=== PATIENT | female | born 1960 | race Caucasian/White ===

== ENCOUNTER → 2016-04-20 | Outpatient (CLI) | payer MEDICARE ==
[2016-01-03 17:15] VITALS: BP 157/98
[~2016-04-20] MED LIST: ALPR1TAB2 PO; ASPI325T4 PO; ATOR20TA PO; ERGO500012 PO; FLUV50TA2 PO; GABA-587 PO; ILOP8TAB2 PO; LEVO50TA5 PO; OLAN10TA3 PO; POTASSIUM 99 MG; PRIM50TA PO; PROP10TA PO; SERT100T PO
--- NOTE | 2016-04-20 14:11 | RAD ---
EXAM: CT thoracic spine without contrast. HISTORY: T12 fracture. TECHNIQUE: CT of the thoracic spine was performed without intravenous contrast. COMPARISON: 02/09/2016. FINDINGS: There is a severe compression fracture at T12 with near vertebra plana. There is retropulsion of the posterior aspect of the vertebral body by 5 mm. This is not clearly changed since the prior study. Central canal stenosis is moderate at this level with minimal anteroposterior central canal diameter 6.5 mm centrally. There is mild focal kyphosis. There is a moderate to large Schmorl's node at the inferior endplate of L1 with mild depression of the inferior endplate. This is also unchanged. There is no retropulsion. There is a sclerotic focus along the posterior inferior endplate of T8, corresponding with the lesion seen on prior MRI. There is no associated compression deformity or clear destructive change. The small lesion seen at T8 on the prior study does not have a correlate on CT. Mild wedging of T8 appears chronic. No acute fractures are seen. There is a mild upper thoracic dextrocurvature. Osteopenia is at least moderate. Changes of instrumented anterior cervical discectomy and fusion are noted from C5 through C7. Intervertebral disc heights are maintained. There is no clear central canal stenosis or foraminal stenosis at other levels. There are postsurgical changes at the hiatus. Calcified mediastinal lymph nodes are likely secondary to old granulomatous disease. Scattered parenchymal calcified granulomas are also noted. IMPRESSION: 1. Severe compression fracture at T12, with near vertebra plana, unchanged. 5 mm retropulsion results in moderate central canal stenosis with minimal anteroposterior central canal diameter is 6.5 mm. Mild focal kyphosis. 2. The lesion of concern on prior MRI at T10 is sclerotic by CT. The T8 lesion is not detectable. These remain indeterminate but have not clearly progressed given differences in technique. Another follow-up bilateral MRI could be considered in 6 months. 3. Stable moderate inferior endplate Schmorl's node at L1 with mild inferior plate compression. 4. Mild upper thoracic dextrocurvature. One or more of the following individualized dose reduction techniques were utilized for this examination: 1. Automated exposure control. 2. Adjustment of the mA and/or kV according to patient size. 3. Use of iterative reconstruction technique.
== END | disposition home or self-care (01) ==
LOC: CT 12:27
PROVIDERS: ATTEND Neurological Surgery
DX: S22.089A Unspecified fracture of T11-T12 vertebra, initial encounter for closed fracture (principal); M48.04 Spinal stenosis, thoracic region; M40.294 Other kyphosis, thoracic region; M51.46 Schmorl's nodes, lumbar region
CPT/HCPCS: 72128

== ENCOUNTER → 2018-11-06 | Outpatient (CLI) | payer MEDICARE ==
[2016-05-04 11:37] VITALS: BP 112/87
[~2018-11-06] MED LIST changes: +AMOX500C PO; -ASPI325T4 PO; +ASPI325T8 PO; +CHOL20002 PO; -ERGO500012 PO; +ERGO500027 PO; -GABA-587 PO; +GABA-689 PO; +GABA300C18 PO; +HYDR-2765 PO; +LISI-334 PO; +POTA99TA10 PO
--- NOTE | 2018-11-07 10:01 | KCIC ---
MRI Thoracic Spine without contrast History: Previous compression fracture, new severe low back pain Technique: Multiplanar, multi sequential noncontrast MR imaging was performed of the thoracic spine. Comparison: February 09, 2016 thoracic spine MRI exam Findings: There is some motion degradation. There has been interval vertebroplasty at T8. There is now posterolateral fusion hardware T9, T10, T11, L1, L2, L3 with bilateral pedicle screws attached to vertical rods, integrity of hardware not accurately evaluated on this exam. There is again T12 vertebral body fracture, osseous retropulsion as seen previously. Degree of inferior L1 endplate concavity is similar. There is small focus of edema of the inferior T10 endplate posteriorly unchanged. There is no new convincing marrow edema, some artifact created by hardware. Visualized thoracic cord caliber is within normal limits without focal expansile signal abnormality, limited evaluation at levels of hardware. There has been posterior decompression centered about T12. No significant thoracic spinal stenosis is identified. Inferior thoracic neural foramina are poorly visualized due to artifact from hardware, otherwise no significant neural foramina compromise identified. There is anterior cervical fusion hardware C5-C7 as seen on the localizer. There is mild thoracic dextroscoliosis. As seen on localizer, there is grade 1 anterior spondylolisthesis L5-S1. There is L5-S1 degenerative disc disease. IMPRESSION: 1. There has been vertebroplasty at T8. There is again T12 vertebral body fracture with osseous retropulsion, posterior decompression about this level and posterolateral hardware T9-L3. No convincing significant marrow edema is identified, limited evaluation about the levels of hardware due to artifact. Electronically signed by: Enrique Jackson MD (11/07/2018 9:59 AM) [email or web address]
== END | disposition home or self-care (01) ==
LOC: KCIC MRI 10:37
PROVIDERS: ATTEND Family Medicine
DX: S22.088G Other fracture of T11-T12 vertebra, subsequent encounter for fracture with delayed healing (principal); M51.37 Other intervertebral disc degeneration, lumbosacral region; M43.17 Spondylolisthesis, lumbosacral region; M43.22 Fusion of spine, cervical region; X58.XXXD Exposure to other specified factors, subsequent encounter
CPT/HCPCS: 72146

== ENCOUNTER → 2018-12-17 | Outpatient (CLI) | payer MEDICARE ==
[2016-05-04 11:37] VITALS: BP 112/87
[~2018-12-17] MED LIST changes: +IOHEXOL 300 MG/ML 50 ML VIAL. IT ONE; +LIDOCAINE 1% Multi-Dose 20 ML VIAL. ID ONE
--- NOTE | 2018-12-17 17:39 | KCIC ---
Thoracic and Lumbar myelogram 12/17/2018 Clinical History: Mid and low back pain. Left leg pain. Technique: After the risks and benefits of the procedure were explained to the patient, written informed consent was obtained. The patient was placed prone on the fluoroscopy table and the lower back was prepped and draped in sterile fashion. 1% lidocaine was used as a local anesthetic. Under fluoroscopic guidance, the thecal sac of the lumbar cistern was punctured at the L3-4 level using 25-gauge Charlene needle. After confirming clear CSF return, 12 cc of Omnipaque 300 were injected through the needle into the thecal sac of the lumbar cistern under fluoroscopic guidance. Following this the needle was removed and hemostasis achieved at the puncture site. A sterile bandage was placed on the skin puncture site. AP, bilateral oblique, lateral and standing neutral, flexion and extension lateral digital radiographs of the lumbar spine were obtained. Following this the contrast column was advanced under fluoroscopy into the thoracic spine and multiple AP and lateral digital spot radiographs of the thoracic spine were obtained. Following this the patient was taken to CT where a CT scan of the thoracic and lumbar spine were performed. These will be reported separately. Following the examinations the patient was sent home with an instruction sheet. The patient tolerated the procedure well and there were no immediate complications. The total fluoroscopic time for this procedure was 3 minutes 15 seconds. 15 digital spot radiographs were obtained. Findings: There is diffuse osteopenia of the visualized bony structures. Mild S-shaped curvature of the thoracolumbar spine is seen. The patient is post kyphoplasty type procedure at T8. The patient is post fusion using stabilizing rods and pedicle screws at T9, T10,11 extending to L1, L2 and L3. An old compression fracture of the T12 vertebral body is noted. Bilateral spondylolysis is seen at L5. Grade 2 spondylolisthesis of L5 in relation S1 is noted. No extradural defect is seen upon the contrast column within the thoracic spine. Mild anterior and posterior extradural defects are seen upon the contrast column at L5-S1. There is no evidence of complete block of contrast at any level involving the thoracic and lumbar vertebrae. The alignment of the lumbar vertebrae is maintained on the flexion extension radiographs. Atherosclerotic calcification of the abdominal aorta is seen. Impression: 1. Postsurgical changes are seen as discussed above. 2. Bilateral spondylolysis with grade 2 spondylolisthesis at L5-S1. Electronically signed by: Marquez Madden MD (12/17/2018 5:36 PM) [email or web address]
--- NOTE | 2018-12-17 17:53 | KCIC ---
CT thoracic and lumbar myelogram 12/17/2018 CLINICAL HISTORY: Mid and low back pain. Left hip pain. History of previous surgeries. TECHNIQUE: This study was performed after the patient's thoracic and lumbar myelogram. Contiguous, 0.6 mm axial sections were obtained through the thoracic and lumbar spine. 3 mm reconstructed sagittal, axial and coronal images were obtained. One or more of the following individualized dose reduction techniques were utilized for this study: 1. Automated exposure control. 2. Adjustment of the mA and/or kV according to patient size. 3. Use of iterative reconstruction technique. FINDINGS: Comparison is made to patient's MRI of the thoracic spine dated 11/06/2018. Additional comparison is made to patient's thoracic and lumbar myelogram performed earlier today. Sagittal coronal reconstructed images demonstrate diffuse osteopenia of the visualized bony structures. Mild S-shaped curvature of the thoracolumbar spine is seen. The patient is post kyphoplasty type procedure at T8. The patient is post fusion using stabilizing rods and pedicle screws at T9, T10,11 extending to L1, L2 and L3. The patient is post laminectomy at T12. An old compression fracture of the T12 vertebral body is noted. No retropulsion of bone fragments into the central spinal canal seen. Old compression deformity of the L1 vertebral body is seen. Bilateral spondylolysis is seen at L5. Grade 2 spondylolisthesis of L5 in relation S1 is noted. Note is made of calcified hilar and mediastinal lymph nodes. Scattered atherosclerotic plaque formation seen involving the thoracic aorta along with the abdominal aorta. On the axial images throughout the thoracic disc spaces a mild generalized disc bulge is seen at T8-9. Superimposed right paracentral focal disc protrusion is seen which measures 2 mm in AP diameter. Degenerative changes are seen involving the facet joints throughout the mid and lower thoracic disc spaces. These findings do not result in significant central spinal canal or neural foraminal stenosis. The axial images throughout the lumbar disc spaces demonstrate mild generalized disc bulges along with degenerative changes involving the facet joints mild ligamentum flavum hypertrophy. These findings when combined with the anterolisthesis at L5-S1 result in severe bilateral neural foraminal stenosis. No significant central spinal canal stenosis is seen. IMPRESSION: 1. Postsurgical changes are seen as discussed above. 2. Bilateral spondylolysis with grade 2 spondylolisthesis at L5-S1. 3. Degenerative changes are seen involving the thoracic spine. These findings do not result in significant central spinal canal or neural foraminal stenosis. 4. The changes of degenerative disc disease are seen involving the lumbar spine. These findings do not result in significant central spinal canal stenosis at any level. Severe bilateral neural foraminal stenosis is seen at L5-S1. Electronically signed by: Marquez Madden MD (12/17/2018 5:50 PM) [id number]
== END | disposition home or self-care (01) ==
LOC: KCIC 08:32
PROVIDERS: ATTEND Neurological Surgery
DX: M54.5 Low back pain (principal); M47.817 Spondylosis without myelopathy or radiculopathy, lumbosacral region; M48.07 Spinal stenosis, lumbosacral region; Z98.890 Other specified postprocedural states
CPT/HCPCS: 72129; 72132; 72270; Q9967

== ENCOUNTER → 2019-01-30 | Outpatient (CLI) | payer MEDICARE ==
[2016-05-04 11:37] VITALS: BP 112/87
[~2019-01-30] MED LIST changes: +CLONAZEPAM1 MG PO; +FLUV100T2 PO; -IOHEXOL 300 MG/ML 50 ML VIAL. IT ONE; -LIDOCAINE 1% Multi-Dose 20 ML VIAL. ID ONE; +MIRT15TA90 PO; +QUET400T4 PO; +[UNRECOGNIZED DRUG - CODE] PO
--- NOTE | 2019-01-30 14:19 | EKG ---
[facility] [address] [place] [address] Test Date: 2019-01-30 Test Time: 14:13:13 Pat Name: BLAYNE ROSA Department: Room: Gender: F [employer] Trainee: JEOVANY : 1960 Requested By: HALLE ALCOCER Order Number: [id number] Reading MD: Measurements Intervals [place] Rate: 100 P: 143 MA: 134 QRS: -159 QRSD: 90 T: 136 QT: 342 QTc: 444 Interpretive Statements SUPRAVENTRICULAR RHYTHM ABNORMAL RIGHT SUPERIOR AXIS DEVIATION S1,S2,S3 PATTERN CONSIDER RIGHT VENTRICULAR HYPERTROPHY QRS(T) CONTOUR ABNORMALITY CONSIDER ANTEROSEPTAL MYOCARDIAL DAMAGE T ABNORMALITY IN HIGH LATERAL LEADS ABNORMAL ECG RI6.01 No previous ECG available for comparison
[2019-01-30 14:21] LABS: BASO % 1 % (0-3); EOS # 0.1 x10^3/uL (0.0-0.7); EOS % 1 % (0-3); HEMATOCRIT 39.2 % (36.0-47.0); HEMOGLOBIN 12.9 g/dL (12.0-15.5); LYMPH # 1.3 x10^3/uL (1.0-4.8); LYMPH % 18 % (24-48); MEAN CORPUSCULAR HEMOGLOBIN 26 pg (25-35); MEAN CORPUSCULAR HGB CONC 33 g/dL (31-37); MEAN CORPUSCULAR VOLUME 80 fL (79-100); MONO # 0.4 x10^3/uL (0.0-1.1); MONO % 6 % (0-9); NEUT # 5.3 x10^3/uL (1.8-7.7); NEUT % 74 % (31-73); PLATELET COUNT 224 x10^3/uL (140-400); RED BLOOD COUNT 4.88 x10^6/uL (3.50-5.40); WHITE BLOOD COUNT 7.2 x10^3/uL (4.0-11.0)
[2019-01-30 14:45] LABS: PROTHROMBIN TIME PATIENT 12.1 SEC (11.7-14.0)
[2019-01-30 14:46] LABS: ALBUMIN 3.9 g/dL (3.4-5.0); CALCIUM 8.9 mg/dL (8.5-10.1); CREATININE 0.8 mg/dL (0.6-1.0); GFR 73.7; POTASSIUM 3.7 mmol/L (3.5-5.1); TOTAL BILIRUBIN 0.2 mg/dL (0.2-1.0); TOTAL PROTEIN 7.9 g/dL (6.4-8.2)
--- NOTE | 2019-01-30 14:54 | RAD ---
EXAM: Chest, 2 views. HISTORY: Pain. Preoperative evaluation. COMPARISON: None. FINDINGS: 2 views of the chest are obtained. There is no infiltrate, pleural effusion or pneumothorax. The heart is normal in size. There is cervical and upper lumbar fusion instrumentation. There is a midthoracic compression fracture with vertebroplasty changes. There are few calcified granulomas. IMPRESSION: No acute pulmonary finding. Electronically signed by: Alma Delia Spencer MD (01/30/2019 2:51 PM) [place] [id number]
[2019-01-30 17:24] LABS: PLT ESTIMATE ADEQUATE (ADEQUATE)
[2019-01-30 17:25] LABS: ANISOCYTOSIS SLIGHT; OVALOCYTES OCC; TEAR DROP CELLS OCC
[2019-01-31 00:07] LABS: HEMOGLOBIN A1C 5.3 % (4.8-5.6)
== END | disposition home or self-care (01) ==
LOC: SURGPAT 13:24
PROVIDERS: ATTEND Neurological Surgery
DX: Z01.818 Encounter for other preprocedural examination (principal); M47.26 Other spondylosis with radiculopathy, lumbar region; M43.16 Spondylolisthesis, lumbar region; E78.00 Pure hypercholesterolemia, unspecified; I10 Essential (primary) hypertension; Z88.8 Allergy status to other drugs, medicaments and biological substances; Z79.899 Other long term (current) drug therapy
CPT/HCPCS: 36415; 71046; 80053; 83036; 85025; 85610; 85730; 87641; 93005

== ENCOUNTER 2019-02-10 06:43 | Inpatient (IN) | payer MEDICARE ==
[~2019-02-10] VITALS: Ht 157.5 cm; Wt 54.4 kg
[2019-02-10] VITALS (10 sets, daily range): BP systolic 90–135; BP diastolic 66–90
[~2019-02-10 06:43] MED LIST changes: +BACITRACIN 50,000 UNIT in IV NORMAL SALINE 1000ML BAG 1,000 ML IRR ONE; +BUPIVACAINE MPF 0.5% 30 ML VIAL. ONE; +GELATIN SPONGE SIZE 100. ONE; +IV RINGERS,LACTATED 1000ML 1,000 ML IV SCH; +LIDOCAINE 1% PF 2 ML VIAL. ID PRN; +LIDOCAINE 1%/EPI 1:100,000 20 ML VIAL. ONE; +ONDANSETRON PF 4 MG/2 ML VIAL. IV PRN; +PROCHLORPERAZINE 10 MG/2 ML VIAL. IV PRN; +fentaNYL PF VIAL 100 MCG/2 ML VIAL IV PRN
[2019-02-10] MEDS ORDERED: THROMBIN TOPICAL 20,000 UNIT SPRAY.SYRN KIT TP ONE (06:44)
[2019-02-10] MEDS ORDERED: SCOPOLAMINE 1.5MG PATCH. TD ONE (08:00)
[2019-02-10] MEDS ORDERED: REMIFENTANIL 2 MG VIAL. IV ONE (08:25)
[2019-02-10] MEDS ORDERED: MIDAZOLAM HCL/PF 2 MG/2 ML VIAL. ONE (08:25)
[2019-02-10] MEDS ORDERED: ROCURONIUM 50 MG/5 ML VIAL. ONE (08:26)
[2019-02-10] MEDS ORDERED: fentaNYL PF VIAL 100 MCG/2 ML VIAL ONE (08:28)
[2019-02-10] MEDS ORDERED: PHENYLEPHRINE in 0.9% NACL PF 1 MG/10 ML SYRINGE. IV ONE (09:02)
[2019-02-10] MEDS ORDERED: PHENYLEPHRINE 10 MG/ML VIAL. ONE ×2 (09:55)
--- NOTE | 2019-02-10 09:58 | RAD ---
Examination: CT LUMBAR SPINE WO CONTRAST History: Spondylolysis. Back pain. Radiculopathy. Comparison/Correlation: None Findings: Axial images of the lumbar spine were obtained without contrast. Sagittal and coronal reformatted images were provided. Severe T12 vertebral body compression fracture with greater than 75 percent vertebral body height loss again seen. Kyphoplasty findings suggested. Bilateral T12 laminectomy noted. Compression fracture of L1 is identified to have mildly progressed since 02/09/2016 MRI lumbar spine. Spinal rods are not fully included on this exam. Rods are identified extending to the L3 level and superiorly on the [id number] of this exam. Associated pedicle screws bilaterally are seen at L1, L2, and L3. Grade 2 anterolisthesis of L5 over S1 is similar upon correlation with previous MRI exam dated 02/09/2016. Bilateral L5 pars interarticularis chronic fractures again seen. Left neural foraminal narrowing in particular is evident with effacement of the left exiting nerve root. Compression on the exiting right L5 nerve root is present. Suture material is noted in the left pelvic sidewall region and associated with the sigmoid colon.. Impression: Postoperative findings. Compression deformities. Anterolisthesis of L5 in relation to S1. Nerve root effacement and compression at L5. PQRS Compliance Statement: One or more of the following individualized dose reduction techniques were utilized for this examination: 1. Automated exposure control 2. Adjustment of the mA and/or kV according to patient size 3. Use of iterative reconstruction technique Electronically signed by: Jaxson Bennett MD (02/10/2019 9:55 AM) [facility]
[2019-02-10] MEDS ORDERED: DEXAMETHASONE SOD PHOS 4 MG/ML VIAL ONE (12:33)
[2019-02-10] MEDS ORDERED: ONDANSETRON PF 4 MG/2 ML VIAL. ONE (12:33)
[2019-02-10] MEDS ORDERED: LIDOCAINE 2% PF 5 ML VIAL. ONE (12:33)
[2019-02-10] MEDS ORDERED: PROPOFOL 20 ML IV ONE (12:33)
[2019-02-10] MEDS ORDERED: ceFAZolin SODIUM 1 GM VIAL ONE (12:52)
[2019-02-10] MEDS ORDERED: DESFLURANE > 120 MINUTES IH ONE (13:01)
[2019-02-10] MEDS ORDERED: IV NORMAL SALINE 1000ML BAG 1,000 ML IV SCH (13:01)
--- NOTE | 2019-02-10 13:01 | PDOC ---
BRIEF OPERATIVE NOTE Date: Feb 10, 2019 Pre-Op Diagnosis lumbar radiculopathy, spondylolisthesis and spondylolysis, bilateral foraminal stenosis L5-S1 Post-Op Diagnosis same Procedure Performed bilateral laminectomy and foraminotomies L5-S1, posterolateral instrumented fusion L5-S1 Surgeon Camille Bernard Anesthesia Type: General Blood Loss 50mL Specimens Obtained decompression Findings bilateral spondylolysis L5 with significant narrowing L5-S1 foramina, neuromonitoring at least baseline throughout the procedure Complications none apparent HALLE ALCOCER MD Feb 10, 2019 13:01
[2019-02-10] MEDS ORDERED: diphenhydrAMINE 50 MG/ML VIAL IV PRN (13:15)
[2019-02-10] MEDS ORDERED: ZOLPIDEM 5 MG TABLET. PO PRN (13:15)
[2019-02-10] MEDS ORDERED: ONDANSETRON PF 4 MG/2 ML VIAL. IVP PRN (13:15)
[2019-02-10] MEDS ORDERED: MAGNESIUM HYDROXIDE 2,400 MG/30 ML ORAL.SUSP. PO PRN (13:15)
[2019-02-10] MEDS ORDERED: diphenhydrAMINE HCL 25 MG CAPSULE PO PRN (13:15)
[2019-02-10] MEDS ORDERED: NALOXONE 0.4 MG/ML VIAL. IV PRN ×2 (13:15)
[2019-02-10] MEDS ORDERED: MAG HYDROX/ALUMINUM HYD/SIMETH 30 ML ORAL.SUSP PO PRN (13:15)
[2019-02-10] MEDS ORDERED: 0.9 % SODIUM CHLORIDE 10 ML DISP.SYRIN. IV PRN (13:15)
[2019-02-10] MEDS ORDERED: ACETAMINOPHEN 325 MG TABLET. PO PRN (13:15)
[2019-02-10] MEDS ORDERED: CALCIUM CARBONATE 500 MG TAB.CHEW PO PRN (13:15)
[2019-02-10] MEDS ORDERED: fentaNYL PF VIAL 100 MCG/2 ML VIAL IVP PRN ×2 (13:15)
[2019-02-10] MEDS: fentaNYL PF VIAL 100 MCG/2 ML VIAL IV PRN ×4 (13:24→13:50)
[2019-02-10] MEDS ORDERED: hydrALAZINE 20 MG/ML VIAL. IVP ONE (14:15)
--- NOTE | 2019-02-10 14:22 | NUR ---
Arrived to unit by bed from PACU. Alert and oriented x's 4. Dressing lower back saturated and placed ABD dressing to reinforce it. Placed ice pack to lower back. Moves all extremities without difficulty. Does c/o numbness, tingling and pain down right leg. States its always been there but it feels worse. SARAH's and SUSU's on bilaterally. IVF's intact and infusing. Oriented to room and controls. Side rails up x's 2 with call light in reach.
[2019-02-10] MEDS ORDERED: clonazePAM 0.5 MG TABLET PO PRN (14:45)
--- NOTE | 2019-02-10 14:48 | NUR ---
Ambulated to bathroom with walker with assist x's 2. Voided 200cc clear yellow urine. Up in chair with spouse in room.
[2019-02-10] MEDS: oxyCODONE/APAP 5/325 1 TAB TABLET PO PRN ×2 (14:58→19:30)
[2019-02-10] MEDS: METHOCARBAMOL 750 MG TABLET PO SCH ×2 (15:00→21:05)
[2019-02-10] MEDS: GABAPENTIN 300 MG CAPSULE. PO SCH ×2 (15:00→21:05)
--- NOTE | 2019-02-10 15:31 | NUR ---
Suicide assessment completed. Patient with a history of cutting/self mutilation. Upon assessment patient stated she "thought about cutting herself a little over a month ago due to pain but did not actually do it". When charted and reviewed, this initiated the Suicide Protocol. Pharmacist In Charge Owner was notified as well as Dr Obrien. PAT team was consulted and the patient is being rounded on every 15 minutes till further assessment by PAT team is completed. Patients is at bedside. Protocol is being followed and room assessed. Will continue to monitor.
[2019-02-10] MEDS: CALCIUM CARB/VIT D3 500/200 TABLET. PO SCH (16:47)
[2019-02-10] MEDS: FERROUS SULFATE 325 MG TABLET. PO SCH (16:47)
--- NOTE | 2019-02-10 18:31 | NUR ---
PAT team just came in to assess the patient and stated patient is clear from suicide protocol/watch. Patient rounds will go back to hourly instead of every 15 minutes. We will continue to monitor but will not need to have suicide measures in place. Dr Obrien called and notified over the phone. Will monitor.
[2019-02-10] MEDS ORDERED: lamoTRIgine 100 MG TABLET. PO SCH (21:00)
[2019-02-10] MEDS ORDERED: MIRTAZAPINE 15 MG TABLET PO SCH (21:00)
[2019-02-10] MEDS: DOCUSATE SODIUM 100 MG CAPSULE. PO SCH (21:04)
[2019-02-10] MEDS: QUEtiapine 100 MG TABLET. PO SCH (21:04)
[2019-02-10] MEDS: SENNOSIDES/DOCUSATE 8.6/50MG TABLET. PO SCH (21:05)
[2019-02-11 03:00] VITALS: BP 140/90
[2019-02-11] MEDS: oxyCODONE/APAP 5/325 1 TAB TABLET PO PRN ×3 (03:21→11:03)
[2019-02-11 06:27] VITALS: BP 117/83
[2019-02-11] MEDS: METHOCARBAMOL 750 MG TABLET PO SCH (08:33)
[2019-02-11] MEDS: FERROUS SULFATE 325 MG TABLET. PO SCH (08:33)
[2019-02-11] MEDS: CALCIUM CARB/VIT D3 500/200 TABLET. PO SCH (08:33)
[2019-02-11] MEDS: GABAPENTIN 300 MG CAPSULE. PO SCH (08:33)
[2019-02-11] MEDS: QUEtiapine 100 MG TABLET. PO SCH (08:33)
[2019-02-11] MEDS: SENNOSIDES/DOCUSATE 8.6/50MG TABLET. PO SCH (08:34)
[2019-02-11] MEDS: DOCUSATE SODIUM 100 MG CAPSULE. PO SCH (08:34)
[2019-02-11] MEDS ORDERED: MULTIVITAMIN with MINERAL TABLET. PO SCH (09:00)
--- NOTE | 2019-02-11 10:12 | PDOC ---
PROGRESS NOTES Subjective Subjective Reports significant improvement of bilateral leg pain since surgery. Ambulating without problem. Objective Objective Vital Signs Date Time Temp Pulse Resp B/P (MAP) Pulse Ox O2 Delivery O2 Flow Rate FiO2 02/11/19 08:00 Room Air 02/11/19 06:27 98.9 62 20 117/83 (94) 95 2.0 98.9 Intake and Output 02/11/19 06:59 Intake Total 2470 ml Output Total 1775 ml Balance 695 ml Intake Oral 420 ml IV Total 2050 ml Output Urine Total 1725 ml Estimated Blood Loss 50 ml # Voids 2 Physical Exam Physical Exam AAOx4, NAD, KEENE 5/5, sensation intact LT, dressing intact Assessment Assessment POD 1 L5-S1 decompression and fusion Plan Plan of Care -d/c home today with standard post-op restrictions -f/u 2 weeks [phone] Comment Review of Relevant I have reviewed the following items jennifer (where applicable) has been applied. Medications Current Medications Bacitracin 09559 unit/Sodium Chloride 1,000 ml @ 1,000 mls/hr 1X ONCE IRR Last administered on 02/10/19at 09:37; Start 02/10/19 at 06:00; Stop 02/10/19 at 06:59; Status DC Cefazolin Sodium/ Dextrose 50 ml @ 100 mls/hr 1X PREOP PRN IV PRIOR TO PROCEDURE Last administered on 02/10/19at 08:59; Start 02/10/19 at 06:00; Stop 02/10/19 at 18:00; Status DC Ondansetron HCl (Zofran) 4 mg PRN Q6HRS PRN IV NAUSEA/VOMITING; Start 02/10/19 at 06:30; Stop 02/11/19 at 06:29; Status DC Fentanyl Citrate (Fentanyl 2ml Vial) 25 mcg PRN Q5MIN PRN IV MILD PAIN 1-3; Start 02/10/19 at 06:30; Stop 02/11/19 at 06:29; Status DC Fentanyl Citrate (Fentanyl 2ml Vial) 50 mcg PRN Q5MIN PRN IV MODERATE TO SEVERE PAIN Last administered on 02/10/19at 13:50; Start 02/10/19 at 06:30; Stop 02/11/19 at 06:29; Status DC Ringer's Solution 1,000 ml @ 30 mls/hr Q24H IV Last administered on 02/10/19at 07:32; Start 02/10/19 at 06:30; Stop 02/10/19 at 06:35; Status DC Lidocaine HCl (Xylocaine-Mpf 1% 2ml Vial) 2 ml 1X PRN PRN ID IV START; Start 02/10/19 at 06:30; Stop 02/11/19 at 06:29; Status DC Prochlorperazine Edisylate (Compazine) 5 mg PACU PRN PRN IV NAUSEA, MRX1; Start 02/10/19 at 06:30; Stop 02/11/19 at 06:29; Status DC Gelatin (Gelfoam Size 100) 1 each STK-MED ONCE .ROUTE ; Start 02/10/19 at 06:43; Stop 02/10/19 at 06:44; Status DC Bupivacaine HCl (Sensorcaine Mpf 0.5%) 30 ml STK-MED ONCE .ROUTE Last administered on 02/10/19at 09:37; Start 02/10/19 at 06:43; Stop 02/10/19 at 06:44; Status DC Lidocaine/ Epinephrine (LIDOCAINE 1%-EPI 1:100,000 Multi-Dose) 20 ml STK-MED ONCE .ROUTE Last administered on 02/10/19at 09:37; Start 02/10/19 at 06:43; Stop 02/10/19 at 06:44; Status DC Thrombin 20,000 unit STK-MED ONCE TP Last administered on 02/10/19at 09:37; Start 02/10/19 at 06:44; Stop 02/10/19 at 06:44; Status DC Scopolamine (Transderm-Scop) 1 patch ONCE ONCE TD Last administered on 02/10/19at 08:19; Start 02/10/19 at 08:00; Stop 02/10/19 at 08:01; Status DC Midazolam HCl (Versed) 2 mg STK-MED ONCE .ROUTE ; Start 02/10/19 at 08:25; Stop 02/10/19 at 08:25; Status DC Remifentanil HCl (Ultiva) 2 mg STK-MED ONCE IV ; Start 02/10/19 at 08:25; Stop 02/10/19 at 08:26; Status DC Rocuronium [place] (Zemuron) 50 mg STK-MED ONCE .ROUTE ; Start 02/10/19 at 08:26; Stop 02/10/19 at 08:26; Status DC Fentanyl Citrate (Fentanyl 2ml Vial) 100 mcg STK-MED ONCE .ROUTE ; Start 02/10/19 at 08:28; Stop 02/10/19 at 08:28; Status DC Phenylephrine HCl (PHENYLEPHRINE in 0.9% NACL PF) 1 mg STK-MED ONCE IV ; Start 02/10/19 at 09:02; Stop 02/10/19 at 09:02; Status DC Phenylephrine HCl (Marco-Synephrine Inj) 10 mg STK-MED ONCE .ROUTE ; Start 02/10/19 at 09:55; Stop 02/10/19 at 09:55; Status DC Phenylephrine HCl (Marco-Synephrine Inj) 10 mg STK-MED ONCE .ROUTE ; Start 02/10/19 at 09:55; Stop 02/10/19 at 09:55; Status DC Propofol 20 ml @ As Directed STK-MED ONCE IV ; Start 02/10/19 at 12:33; Stop 02/10/19 at 12:33; Status DC Lidocaine HCl (Lidocaine Pf 2% Vial) 5 ml STK-MED ONCE .ROUTE ; Start 02/10/19 at 12:33; Stop 02/10/19 at 12:33; Status DC Ondansetron HCl (Zofran) 4 mg STK-MED ONCE .ROUTE ; Start 02/10/19 at 12:33; Stop 02/10/19 at 12:33; Status DC Dexamethasone Sodium Phosphate (Decadron) 4 mg STK-MED ONCE .ROUTE ; Start 02/10/19 at 12:33; Stop 02/10/19 at 12:33; Status DC Cefazolin Sodium (Ancef) 1 gm STK-MED ONCE .ROUTE ; Start 02/10/19 at 12:52; Stop 02/10/19 at 12:52; Status DC Desflurane (Suprane) 90 ml STK-MED ONCE IH ; Start 02/10/19 at 13:01; Stop 02/10/19 at 13:01; Status DC Multivitamins (Thera M Plus) 1 tab DAILY PO Last administered on 02/11/19at 08:34; Start 02/11/19 at 09:00 Calcium/Vitamin D (Oscal D 500mg/ 200uts) 1 tab BIDWMEALS PO Last administered on 02/11/19 08:33; Start 02/10/19 at 17:00 Ferrous Sulfate (Feosol) 325 mg BIDWMEALS PO Last administered on 02/11/19at 08:33; Start 02/10/19 at 17:00 Acetaminophen (Tylenol) 650 mg PRN Q6HRS PRN PO MILD PAIN / TEMP; Start 02/10/19 at 13:15 Al Hydroxide/Mg Hydroxide (Mylanta Plus Xs) 30 ml PRN Q3HRS PRN PO HEARTBURN / GAS; Start 02/10/19 at 13:15 Calcium Carbonate/ Glycine (Tums) 500 mg PRN Q3HRS PRN PO INDIGESTION; Start 02/10/19 at 13:15 Diphenhydramine HCl (Benadryl) 25 mg PRN Q6HRS PRN PO ITCHING; Start 02/10/19 at 13:15 Diphenhydramine HCl (Benadryl) 25 mg PRN Q6HRS PRN IV ITCHING; Start 02/10/19 at 13:15 Zolpidem Tartrate (Ambien) 5 mg PRN QHS PRN PO INSOMNIA, MAY REPEAT IN 1HR; Start 02/10/19 at 13:15 Naloxone HCl (Narcan) 0.1 mg PRN Q2MIN PRN IV ADMIN; Start 02/10/19 at 13:15 Sodium Chloride (Normal Saline Flush) 3 ml QSHIFT PRN IV AFTER MEDS AND BLOOD DRAWS; Start 02/10/19 at 13:15 Naloxone HCl (Narcan) 0.4 mg PRN Q2MIN PRN IV SEE INSTRUCTIONS; Start 02/10/19 at 13:15 Sodium Chloride 1,000 ml @ 25 mls/hr Q24H IV Last administered on 02/10/19at 13:44; Start 02/10/19 at 13:01 Oxycodone/ Acetaminophen (Percocet 5/325) 1 tab PRN Q4HRS PRN PO MODERATE PAIN Last administered on 02/11/19at 08:34; Start 02/10/19 at 13:15 Oxycodone/ Acetaminophen (Percocet 5/325) 2 tab PRN Q4HRS PRN PO SEVERE PAIN Last administered on 02/11/19 03:21; Start 02/10/19 at 13:15 Methocarbamol (Robaxin) 750 mg TID PO Last administered on 02/11/19 08:33; Start 02/10/19 at 14:00 Senna/Docusate Sodium (Senna Plus) 1 tab BID PO Last administered on 02/11/19 08:34; Start 02/10/19 at 21:00 Docusate Sodium (Colace) 100 mg BID PO Last administered on 02/11/19 08:34; Start 02/10/19 at 21:00 Magnesium Hydroxide (Milk Of Magnesia) 2,400 mg PRN Q12HR PRN PO CONSTIPATION; Start 02/10/19 at 13:15 Ondansetron HCl (Zofran) 4 mg PRN Q6HRS PRN IVP NAUESA, 1ST CHOICE; Start 02/10/19 at 13:15 Gabapentin (Neurontin) 300 mg TID PO Last administered on 02/11/19 08:33; Start 02/10/19 at 14:00 Lamotrigine (LaMICtal) 100 mg HS PO Last administered on 02/10/19at 21:04; Start 02/10/19 at 21:00 Clonazepam (KlonoPIN) 0.5 mg PRN Q8HRS PRN PO ANXIETY / AGITATION Last administered on 02/10/19at 21:39; Start 02/10/19 at 14:45 Fluvoxamine Maleate (Luvox) 100 mg QHS PO Last administered on 02/10/19at 21:05; Start 02/10/19 at 21:00 Mirtazapine (Remeron) 15 mg QHS PO Last administered on 02/10/19at 21:05; Start 02/10/19 at 21:00 Quetiapine Fumarate (SEROquel) 400 mg BID PO Last administered on 02/11/19 08:33; Start 02/10/19 at 21:00 Fentanyl Citrate (Fentanyl 2ml Vial) 50 mcg PRN Q1HR PRN IVP SEVERE PAIN 7-10; Start 02/10/19 at 13:15 Fentanyl Citrate (Fentanyl 2ml Vial) 25 mcg PRN Q1HR PRN IVP SEVERE PAIN 7-10; Start 02/10/19 at 13:15 Hydralazine HCl (Apresoline Inj) 10 mg 1X ONCE IVP Last administered on 02/10/19at 14:10; Start 02/10/19 at 14:15; Stop 02/10/19 at 14:16; Status DC Active Scripts Active Reported Seroquel (Quetiapine Fumarate) 400 Mg Tablet 400 Mg PO BID Fluvoxamine Maleate 100 Mg Tablet 1 Tab PO QHS Clonazepam 1 Mg Tablet 0.5 Mg PO TID PRN Subvenite (Lamotrigine) 100 Mg Tablet 100 Mg PO HS Mirtazapine 15 Mg Tab.rapdis 1 Tab PO QHS 30 Days Gabapentin (Gabapentin) 300 Mg Capsule 300 Mg PO TID Vitals/I & O Vital Sign - Last 24 Hours 02/10/19 02/10/19 02/10/19 02/10/19 13:02 13:02 13:15 13:24 Temp 98.7 98.7 Pulse 108 111 Resp 16 16 18 B/P (MAP) 180/97 180/99 Pulse Ox 97 98 97 O2 Delivery Mask Simple Mask Simple Mask Simple Mask O2 Flow Rate 10 10 10 10.0 02/10/19 02/10/19 02/10/19 02/10/19 13:26 13:30 13:40 13:45 Pulse 108 103 Resp 18 20 20 20 B/P (MAP) 190/102 190/99 Pulse Ox 97 94 97 94 O2 Delivery Simple Mask Room Air Simple Mask Room Air O2 Flow Rate 10.0 10.0 02/10/19 02/10/19 02/10/19 02/10/19 13:50 13:59 14:00 14:10 Pulse 99 99 Resp 18 20 B/P (MAP) 177/109 177/109 Pulse Ox 94 94 O2 Delivery Room Air Room Air Room Air 02/10/19 02/10/19 02/10/19 02/10/19 14:15 14:45 14:58 15:00 Temp 98.5 98.8 98.5 98.8 Pulse 97 110 Resp 16 20 B/P (MAP) 160/90 135/85 (102) 109/77 (88) Pulse Ox 94 96 96 O2 Delivery Room Air Room Air Room Air 02/10/19 02/10/19 02/10/19 02/10/19 15:06 15:15 15:30 15:58 Temp 98.2 98.2 Pulse 107 Resp 18 B/P (MAP) 116/90 (99) 119/84 (96) Pulse Ox 97 96 O2 Delivery Room Air Room Air Room Air O2 Flow Rate 94.0 02/10/19 02/10/19 02/10/19 02/10/19 16:00 16:30 17:33 18:32 Temp 97.9 98.6 98.2 97.9 98.6 98.2 Pulse 110 107 102 Resp 18 16 18 B/P (MAP) 120/71 (87) 112/73 (86) 119/89 (99) 123/82 (96) Pulse Ox 97 96 97 O2 Delivery Room Air Room Air Room Air 02/10/19 02/10/19 02/10/19 02/10/19 19:30 20:00 20:30 21:30 Pulse 94 Resp 20 B/P (MAP) 125/89 (101) Pulse Ox 94 90 O2 Delivery Room Air Room Air Room Air 02/10/19 02/11/19 02/11/19 02/11/19 23:00 03:00 03:21 04:30 Temp 98.9 98.9 Pulse 95 100 Resp 20 20 20 18 B/P (MAP) 90/66 (74) 140/90 (107) Pulse Ox 88 98 94 O2 Delivery Room Air Nasal Cannula Nasal Cannula Nasal Cannula O2 Flow Rate 2.0 2.0 02/11/19 02/11/19 06:27 08:00 Temp 98.9 98.9 Pulse 62 Resp 20 B/P (MAP) 117/83 (94) Pulse Ox 95 O2 Delivery Nasal Cannula Room Air O2 Flow Rate 2.0 Intake and Output 02/10/19 02/10/19 02/11/19 14:59 22:59 06:59 Intake Total 2110 ml 200 ml 160 ml Output Total 950 ml 400 ml 425 ml Balance 1160 ml -200 ml -265 ml HALLE ALCOCER MD Feb 11, 2019 10:12
[2019-02-11] MEDS ORDERED: SENN-200 PO (10:46)
[2019-02-11] MEDS ORDERED: OXYC-325 PO (10:47)
[2019-02-11] MEDS ORDERED: METH-38 PO (10:49)
[2019-02-11 10:51] VITALS: BP 99/69
--- NOTE | 2019-02-11 11:13 | NUR ---
Dismissal instructions given to both pt/spouse with follow up to Drs. Obrien in 2 weeks, Brando in 1 week, also Case Management on February 17 & Therapist on March 12 as scheduled r/t mental health issues, copy of PAT team assessment provided with dismissal papers, dressing supplies provided and instructions on change given to to spouse, Percocet 5 mg given for transfer home, belongings taken with pt, see instruction sheet for details.
--- NOTE | 2019-02-12 16:06 | PATHOLOGY ---
[facility] Accession Number: [id number] . 01 Material submitted: . vertebral column - LUMBAR DECOMPRESSION . 01 Clinical history: . L5-51 right foraminal stenosis, grade II spondy and spondylolysis . 02 Diagnosis: Segments of fibrocartilaginous tissue and bone, lumbar decompression: - Degenerative changes of fibrocartilaginous tissue. . (JPM:mm; 02/12/2019) [facility] 02/12/2019 1349 Local . 02 Comment: There is no evidence of an acute inflammatory process or malignancy. . (JPM:mml; 02/12/2019) . 02 Electronically signed: . Kwesi Daigle MD, Pathologist NPI- [id number] . 01 Gross description: . Received in formalin labeled "Corbet, Allie, lumbar decompression," are several pieces of glistening, fibrous tissue measuring 9.3 x 6.6 x 1.9 cm in aggregate dimensions, containing small fragments of possible bone. The tissue is submitted representatively in cassette A1, following decalcification. (TSD; 02/10/2019) TOB/TOB 02/10/2019 1755 Local . 02 Pathologist provided ICD-10: M51.36 . 02 CPT . 655155, [id number] Specimen Comment: A courtesy copy of this report has been sent to [phone], [phone] Specimen Comment: [id number] Specimen Comment: Report sent to / DR OCONNELL Performed at: 01 [facility] [address], [place], [place] [id number] MD Yasir Dyer MD Phone: [phone] Performed at: 02 [facility] [address] [place], [place] [id number] MD Kwesi Daigle MD Phone: [phone]
--- NOTE | 2019-02-25 13:11 | OP ---
DATE OF SURGERY: 02/10/2019 SURGEON: Young Alcocer MD. EX ASSISTANT/PROGRAM DIRECTOR: Marco Antonio. PREOPERATIVE DIAGNOSES: Lumbar radiculopathy, lumbosacral foraminal stenosis, lumbosacral spondylolisthesis and spondylolysis. PROCEDURE: Bilateral laminectomy/decompression of lumbar 5, sacral 1 with posterolateral instrumented fusion at lumbar 5, sacral [address]-guided stereotaxis and intraoperative neuromonitoring. ANESTHESIA: General. COMPLICATIONS: None. INDICATIONS FOR THE PROCEDURE: The patient is a 58-year-old female with bilateral lower extremity pain localized to spondylolisthesis and foraminal stenosis at L5-S1 from spondylolysis. She has been refractory to nonsurgical treatments. Please refer to the patient chart for additional details. DESCRIPTION OF PROCEDURE: After informed consent was obtained, the patient was brought to the operating room. She was placed under general anesthesia. She was placed in the prone position on the Brennon table. All pressure points were checked and padded appropriately. The lumbosacral region was prepped and draped in the usual sterile fashion. Ancef was administered as prophylactic antibiotic. The stereotactic reference array was instituted to the left iliac crest and a C-arm was utilized to create a stereotactic image. A 3D C-arm was utilized to create a stereotactic image. This was fused with a stereotactic CT obtained just prior to the procedure with good localization. Once this was complete, a vertical incision centered over the region of lumbar 5 and sacral 1, this was made with a 10 blade scalpel. Monopolar electrocautery was utilized to dissect the avascular midline to the spinous processes of lumbar 5 and sacral 1. This was localized and verified to be the correct location with stereotaxis. Dissection was carried out bilaterally across the lamina out to the transverse processes at these locations. The posterior elements were noted to be significantly loose secondary to the spondylolysis. Screw trajectories were planned and produced with a stereotactic awl as well as a tap through the pedicles bilaterally at sacral 1 and bilaterally at lumbar 5. This was done with live neuromonitoring as well as a stereotactic imaging. Bilateral laminectomy was performed with bilateral foraminotomy across the lumbar 5 and sacral 1 removing the posterior elements that were loose from the spondylolysis. Some of this bone was saved for use as autograft. The bilateral lateral recesses and hypertrophied ligament, this was removed with Kerrison rongeur and a foraminotomy was performed with Kerrison rongeur. Decompression was verified with direct visualization as well as palpation with a Rosalino and a Dahl ball probe. Once this was complete, the adjacent bone to the screw trajectories was decorticated with a pneumatic drill. Bone marrow aspirate was taken through a separate fascial incision from the adjacent iliac crest. This was mixed with autograft and allograft substrate and placed in the lateral aspect of the decorticated bone. Pedicle screws were instituted in the previous trajectories utilizing stereotaxis as well as live neuromonitoring. All screws bilaterally at lumbar 5 and sacral 1 had good purchase and position was verified with fluoroscopy. Upon completion of this, rods were instituted and set screws were instituted and secured according to transfer man's specification. Once the decompression and fusion construct were complete, it was noted that neuromonitoring was at least baseline throughout the entire procedure. Fluoroscopy was utilized to verify the appropriate position of the final construct. Once this was complete, stereotactic reference array was removed. Pristine hemostasis was achieved with FloSeal, generous irrigation and cottonoid. The wound was generously irrigated with antibiotic irrigation prior to final closure. The muscle and fascia were then reapproximated with 0 Vicryl in simple interrupted fashion. Subcutaneous tissues reapproximated with 2-0 Vicryl in interrupted inverted fashion. Skin was reapproximated with 4-0 Vicryl in a running subcuticular fashion. The opening of the reference array was closed with Dermabond. The wound was dressed with Xeroform, Telfa, 4 x 4 and Tegaderm. At the end of procedure, all needle and sponge counts were correct x 2. The patient was extubated in the operating room and taken to recovery in stable condition. There were no intraprocedural complications apparent. YOUNG ALCOCER MD DR: PEGGY/bina JOB#: [id number] / [id number]
== END 2019-02-11 11:25 | disposition home or self-care (01) | DRG 460 ==
LOC: OPSVCIP 06:43 → 4 SOUTHEST 14:23
PROVIDERS: ADMIT Neurological Surgery; ATTEND Neurological Surgery
PROC: 01NB0ZZ Release Lumbar Nerve, Open Approach (ICD-10-PCS; 2019-02-10)
PROC: 01NR0ZZ Release Sacral Nerve, Open Approach (ICD-10-PCS; 2019-02-10)
PROC: 4A11X4G Monitoring of Peripheral Nervous Electrical Activity, Intraoperative, External Approach (ICD-10-PCS; 2019-02-10)
PROC: 07DR3ZZ Extraction of Iliac Bone Marrow, Percutaneous Approach (ICD-10-PCS; 2019-02-10)
PROC: 0SG3071 Fusion of Lumbosacral Joint with Autologous Tissue Substitute, Posterior Approach, Posterior Column, Open Approach (ICD-10-PCS; principal; 2019-02-10 08:30)
DX: M48.07 Spinal stenosis, lumbosacral region (principal); M43.17 Spondylolisthesis, lumbosacral region; M47.27 Other spondylosis with radiculopathy, lumbosacral region; I10 Essential (primary) hypertension; K21.9 Gastro-esophageal reflux disease without esophagitis; J44.9 Chronic obstructive pulmonary disease, unspecified; F32.9 Major depressive disorder, single episode, unspecified
CPT/HCPCS: 36415; 72131; 76000; 86850; 86900; 86901; 88304; 88311; A7015; C1713; J0360; J0690; J0696; J1100; J2001; J2250; J2370; J2405; J2704; J3010; J3490; J7030; J7120; G0378

== ENCOUNTER → 2019-04-13 | Outpatient (CLI) | payer MEDICARE ==
[~2019-04-13] MED LIST changes: -BACITRACIN 50,000 UNIT in IV NORMAL SALINE 1000ML BAG 1,000 ML IRR ONE; -BUPIVACAINE MPF 0.5% 30 ML VIAL. ONE; -GELATIN SPONGE SIZE 100. ONE; +IOHEXOL 180 MG/ML 10 ML VIAL. IT ONE; -IV RINGERS,LACTATED 1000ML 1,000 ML IV SCH; +LIDOCAINE 1% Multi-Dose 20 ML VIAL. ID ONE; -LIDOCAINE 1% PF 2 ML VIAL. ID PRN; -LIDOCAINE 1%/EPI 1:100,000 20 ML VIAL. ONE; +METH-38 PO; -ONDANSETRON PF 4 MG/2 ML VIAL. IV PRN; +OXYC-325 PO; -PROCHLORPERAZINE 10 MG/2 ML VIAL. IV PRN; +SENN-200 PO; -fentaNYL PF VIAL 100 MCG/2 ML VIAL IV PRN
--- NOTE | 2019-04-13 10:40 | KCIC ---
Lumbar Myelogram History: Chronic low back pain, postop lumbar fusion January 2018 COMPARISON: December 17, 2017 Technique: Patient was informed of the risks of the procedure to include pain, infection, bleeding, seizures, nerve root injury, and allergic reaction to the contrast. All questions were answered. Patient signed a written consent form for a lumbar myelogram. The patient was placed in a prone oblique position on the fluoroscopy table. External site of the lower back was prepped and draped in the usual sterile fashion. Betadine was utilized for cleansing solution. 1% lidocaine was utilized for local anesthesia at the anticipated site of puncture right L3-4 interlaminar space. A 19-gauge guiding needle was advanced into the soft tissues. Through the guiding needle, a 25 gauge Charlene needle was advanced until there was return of cerebral spinal fluid. Approximately 15 cc Omnipaque 180 were then injected during fluoroscopic visualization. The needles were removed. Fluoroscopic spot images were acquired of the lumbar spine. The patient was then transferred to the CT department for CT examination of the lumbar spine. There were no immediate complications. Fluoroscopy time: 1 minute 28 seconds, 21 images Findings: There is no evidence of myelographic block. There are now bilateral pedicle screws at L5 and S1 attached to vertical rods. There again bilateral pedicle screws at L3, L2, L1, T11, T10, and T9 attached to long vertical rods. There is mild lumbar levoscoliosis. There is again T12 vertebral body fracture. There has been vertebroplasty at T8. There is again grade 2 anterior spondylolisthesis at L5-S1. There is again advanced L5-S1 degenerative disc disease. Impression: 1. There is now posterolateral fusion hardware L5-S1. There is again grade 2 anterior spondylolisthesis at L5-S1 and advanced L5-S1 degenerative disc disease. There is again hardware T9-L3, again T12 vertebral body fracture. Electronically signed by: Enrique Jackson MD (04/13/2019 10:37 AM) [id number]
--- NOTE | 2019-04-13 14:00 | KCIC ---
CT lumbar spine exam History: Low back pain, post surgery Technique: CT imaging was performed of the lumbar spine after injection for lumbar myelogram. Multiplanar reconstruction images are submitted. Exposure: One or more of the following individualized dose reduction techniques were utilized for this examination: 1. Automated exposure control 2. Adjustment of the mA and/or kV according to patient size 3. Use of iterative reconstruction technique. Comparison: February 10, 2018 CT exam and also post myelogram CT exam December 17, 2018 Findings: There are now bilateral pedicle screws at L5 and S1 attached to vertical rods. There is mild lucency adjacent to the tip of the right L5 pedicle screw. There is also mild lucency adjacent to the left S1 pedicle screw greater anteriorly. Tips of the bilateral S1 pedicle screws terminate slightly anterior to the anterior cortical surface of S1. There is again grade 2 anterior spondylolisthesis at L5-S1. There is again advanced L5-S1 degenerative disc disease with associated vacuum phenomenon. Superior endplate concavity of L5 is stable. There is again central compression deformity of L1 and severe central and superior height loss of T12. Not fully included on this exam, there is again posterolateral fusion hardware at L3, L2, L1, T11, superior extent of the hardware not fully included. There again has been posterior decompression centered about T12. Conus terminates at L1-L2. There is bone demineralization. There is mild lumbar levoscoliosis. There is some scattered plaque of the abdominal aorta and iliac arteries. T11-12: Spinal canal and the neural foramina are adequate. T12-L1: There is again vacuum disc disease. There again has been posterior decompression. Spinal canal is adequate. Left neural foramen is adequate. There is again moderate narrowing of the right neural foramen due to height loss of T12 in combination with facet degenerative change. L1-L2: Spinal canal and neural foramina are adequate. There is bilateral facet degenerative change. L2-L3: There is again fairly severe facet degenerative change. Spinal canal is adequate. There is mild posterior neural foramina compromise bilaterally by facets. L3-L4: There is mild buckling of the ligamentum flavum. There is again moderate bilateral facet hypertrophic change. Spinal canal is overall adequate. There is mild bilateral neural foramina compromise from posteriorly by facets as seen previously. L4-L5: There has been interval posterior decompression, spinal canal widely patent. There is also density posteriorly at site of posterior decompression and extending to the subcutaneous fat, difficult to accurately assess for more focal fluid collection. There is mild posterior narrowing of the left neural foramen by facet, right neural foramen overall adequate. There is bilateral facet degenerative change. L5-S1: There has been posterior decompression, nonspecific density at surgical site extending to the posterior subcutaneous fat. Spinal canal is widely patent. There is severe bilateral neural foramina compromise due to partial uncovering of the posterior aspect of the disc and superimposed disc osteophyte complex, impingement of expected L5 exiting nerve roots greater on the right although the exiting L5 nerve roots poorly delineated. Impression: 1. Compared with the previous exams, there is now posterolateral fusion hardware L5-S1, tips of the S1 pedicle screws terminating slightly anterior to the anterior cortical surface of S1. There is also mild lucency adjacent to the left S1 and right L5 pedicle screws which could be due to degree of loosening unless there is clinical suspicion for infection. There is again grade 2 anterior spondylolisthesis and fairly advanced degenerative disc disease at L5-S1. There is severe bilateral L5-S1 neural foramina compromise with impingement of the exiting L5 nerve roots bilaterally, the L5 nerve roots somewhat poorly delineated on this exam. There has been posterior decompression centered at L4-5 and L5-S1, nonspecific density posteriorly at site of posterior decompression extending to the posterior subcutaneous fat. There is no lumbar spinal stenosis. 2. As seen previously, there is multilevel posterolateral fusion hardware of the thoracolumbar spine, superior extent not fully included. There are again T12 and L1 vertebral body fractures, also similar degree of superior L5 endplate concavity. Electronically signed by: Enrique Jackson MD (04/13/2019 1:58 PM) [place] [id number]
== END | disposition home or self-care (01) ==
LOC: KCIC 08:43
PROVIDERS: ATTEND Neurological Surgery
DX: M51.16 Intervertebral disc disorders with radiculopathy, lumbar region (principal); M47.26 Other spondylosis with radiculopathy, lumbar region; M47.814 Spondylosis without myelopathy or radiculopathy, thoracic region; M43.17 Spondylolisthesis, lumbosacral region; M48.05 Spinal stenosis, thoracolumbar region; M53.3 Sacrococcygeal disorders, not elsewhere classified; M81.0 Age-related osteoporosis without current pathological fracture; S22.089A Unspecified fracture of T11-T12 vertebra, initial encounter for closed fracture; M25.78 Osteophyte, vertebrae; M89.38 Hypertrophy of bone, other site; I70.0 Atherosclerosis of aorta; I70.8 Atherosclerosis of other arteries; X58.XXXA Exposure to other specified factors, initial encounter; Y93.89 Activity, other specified; Y92.89 Other specified places as the place of occurrence of the external cause; Y99.8 Other external cause status
CPT/HCPCS: 72132; 72265; J3490; Q9965

== ENCOUNTER → 2019-04-29 | Outpatient (CLI) | payer MEDICARE ==
[~2019-04-29] MED LIST changes: +CEPH-264 PO; -IOHEXOL 180 MG/ML 10 ML VIAL. IT ONE; -LIDOCAINE 1% Multi-Dose 20 ML VIAL. ID ONE
[2019-04-29 13:03] LABS: BASO % 1 % (0-3); EOS % 0 % (0-3); HEMATOCRIT 43.5 % (36.0-47.0); HEMOGLOBIN 14.5 g/dL (12.0-15.5); LYMPH # 1.1 x10^3/uL (1.0-4.8); LYMPH % 15 % (24-48); MEAN CORPUSCULAR HEMOGLOBIN 30 pg (25-35); MEAN CORPUSCULAR HGB CONC 33 g/dL (31-37); MEAN CORPUSCULAR VOLUME 89 fL (79-100); MONO # 0.4 x10^3/uL (0.0-1.1); MONO % 6 % (0-9); NEUT # 5.7 x10^3/uL (1.8-7.7); NEUT % 78 % (31-73); PLATELET COUNT 253 x10^3/uL (140-400); RED BLOOD COUNT 4.87 x10^6/uL (3.50-5.40); RED CELL DISTRIBUTION WIDTH 17.4 % (11.5-14.5); WHITE BLOOD COUNT 7.3 x10^3/uL (4.0-11.0)
[2019-04-29 13:14] LABS: PROTHROMBIN TIME PATIENT 12.1 SEC (11.7-14.0)
[2019-04-29 17:33] LABS: ALBUMIN 3.8 g/dL (3.4-5.0); ALBUMIN/GLOBULIN RATIO 1.1 (1.0-1.7); CREATININE 0.7 mg/dL (0.6-1.0); GFR 85.9; POTASSIUM 3.1 mmol/L (3.5-5.1); TOTAL BILIRUBIN 0.3 mg/dL (0.2-1.0); TOTAL PROTEIN 7.4 g/dL (6.4-8.2)
[2019-04-29 17:38] LABS: CALCIUM 8.9 mg/dL (8.5-10.1)
[2019-04-30 07:12] LABS: HEMOGLOBIN A1C 5.4 % (4.8-5.6)
== END ==
LOC: SURGPAT 12:30
PROVIDERS: ATTEND Neurological Surgery
DX: Z01.812 Encounter for preprocedural laboratory examination (principal); M96.0 Pseudarthrosis after fusion or arthrodesis; Z88.8 Allergy status to other drugs, medicaments and biological substances; Z79.899 Other long term (current) drug therapy
CPT/HCPCS: 36415; 80053; 83036; 85025; 85610; 85730; 87641

== ENCOUNTER → 2019-05-05 | Day surgery (SDC) | payer MEDICARE ==
[~2019-05-05] VITALS: Ht 157.5 cm; Wt 48.1 kg
[~2019-05-05] MED LIST changes: +0.9 % SODIUM CHLORIDE 20 ML VIAL. IJ ONE; +BACITRACIN 50,000 UNIT in IV NORMAL SALINE 1000ML BAG 1,000 ML IRR ONE; +BUPIVACAINE MPF 0.5% 30 ML VIAL. ONE; +DESFLURANE 16 TO 30 MINUTES. IH ONE; +DEXAMETHASONE SOD PHOS 20 MG/5 ML VIAL. ONE; +FAMOTIDINE 20 MG/2 ML VIAL ONE; +GELATIN SPONGE SIZE 100. ONE; +HYDROmorphone 2 MG/ML VIAL IV PRN; +IV RINGERS,LACTATED 1000ML 1,000 ML IV SCH; +LIDOCAINE 1% Multi-Dose 20 ML VIAL. ONE; +LIDOCAINE 1% PF 2 ML VIAL. ID PRN; +LIDOCAINE 1%/EPI 1:100,000 20 ML VIAL. ONE; +LIDOCAINE 2% PF 5 ML VIAL. ONE; +MIDAZOLAM HCL/PF 2 MG/2 ML VIAL. ONE; +MORPHINE SULFATE 2 MG/ML VIAL. IV PRN; +ONDANSETRON PF 4 MG/2 ML VIAL. IV PRN; +ONDANSETRON PF 4 MG/2 ML VIAL. ONE; +PROCHLORPERAZINE 10 MG/2 ML VIAL. IV PRN; +PROPOFOL 100 ML IV ONE; +PROPOFOL 20 ML IV ONE; +REMIFENTANIL 2 MG VIAL. IV ONE; +ROCURONIUM 50 MG/5 ML VIAL. ONE; +SCOPOLAMINE 1.5MG PATCH. TD ONE; +SENN1TAB99 PO; +THROMBIN TOPICAL 20,000 UNIT SPRAY.SYRN KIT TP ONE; +ePHEDrine PF IN SALINE 50 MG/10 ML SYRINGE. IV ONE; +fentaNYL PF VIAL 100 MCG/2 ML VIAL IV PRN; +fentaNYL PF VIAL 100 MCG/2 ML VIAL ONE
--- NOTE | 2019-05-05 08:02 | RAD ---
Examination: CT LUMBAR SPINE WO CONTRAST History: Pseudoarthrosis, hardware failure L5-S1. [facility]. Comparison/Correlation: 04/13/2019 CT lumbar spine myelogram Findings: Axial images of lumbar spine were obtained without contrast. Sagittal and coronal reformatted images were provided. There are bilateral pedicle screws at L5 and S1 attached to vertical rods. There is mild lucency adjacent to the tip of the right L5 pedicle screw. There is also mild lucency adjacent to the left S1 pedicle screw greater anteriorly. Tips of the bilateral S1 pedicle screws terminate slightly anterior to the anterior cortical surface of S1. There is again grade 2 anterior spondylolisthesis at L5-S1. There is again advanced L5-S1 degenerative disc disease with associated vacuum phenomenon. Superior endplate concavity of L5 is stable. There is again central compression deformity of L1 and severe central and superior height loss of T12. Not fully included on this exam, there is again posterolateral fusion hardware at L3, L2, L1, T11, superior extent of the fragments not fully included. The T10 and T11 screws bilaterally are unremarkable. There again has been posterior decompression centered about T12. Conus terminates at L1-L2. There is bone demineralization. There is mild lumbar levoscoliosis. There is some scattered plaque of the abdominal aorta and iliac arteries. T10-11: Bilateral pedicle screws terminate within the vertebral bodies are intact without definite surrounding loosening. T11-12: Spinal canal and the neural foramina are adequate. T12-L1: There is again vacuum disc disease. There again has been posterior decompression. Spinal canal is adequate. Left neural foramen is adequate. There is again moderate narrowing of the right neural foramen due to height loss of T12 in combination with facet degenerative change. L1-L2: Spinal canal and neural foramina are adequate. There is bilateral facet degenerative change. L2-L3: There is again fairly severe facet degenerative change. Spinal canal is adequate. There is mild posterior neural foramina compromise bilaterally by facets. L3-L4: There is mild buckling of the ligamentum flavum. There is again moderate bilateral facet hypertrophic change. Spinal canal is overall adequate. There is mild bilateral neural foramina compromise from posteriorly by facets as seen previously. L4-L5: There has been interval posterior decompression, spinal canal widely patent. There is also density posteriorly at site of posterior decompression and extending to the subcutaneous fat, difficult to accurately assess for more focal fluid collection. There is mild posterior narrowing of the left neural foramen by facet, right neural foramen overall adequate. There is bilateral facet degenerative change. L5-S1: There has been posterior decompression, nonspecific density at surgical site extending to the posterior subcutaneous fat. Spinal canal is widely patent. There is severe bilateral neural foramina compromise due to partial uncovering of the posterior aspect of the disc and superimposed disc osteophyte complex, impingement of expected L5 exiting nerve roots greater on the right although the exiting L5 nerve roots poorly delineated. Incidental note is made of suture material involving the distal sigmoid colon. Impression: 1. No overall significant change compared to the previous CT myelogram of 04/13/2019. Posterolateral fusion hardware L5-S1, tips of the S1 pedicle screws terminating slightly anterior to the anterior cortical surface of S1. There is no change in the previously described mild lucency adjacent to the left S1 and right L5 pedicle screws which could be due to degree of loosening unless there is clinical suspicion for infection. There is again grade 2 anterior spondylolisthesis and fairly advanced degenerative disc disease at L5-S1. There is severe bilateral L5-S1 neural foramina compromise with impingement of the exiting L5 nerve roots bilaterally, the L5 nerve roots somewhat poorly delineated on this exam. There has been posterior decompression centered at L4-5 and L5-S1, nonspecific density posteriorly at site of posterior decompression extending to the posterior subcutaneous fat. There is no lumbar spinal stenosis. 2. There is multilevel posterolateral fusion hardware of the thoracolumbar spine, superior extent of the rods not fully included. There are again T12 and L1 vertebral body fractures which are unchanged and similar degree of superior L5 endplate concavity. PQRS Compliance Statement: One or more of the following individualized dose reduction techniques were utilized for this examination: 1. Automated exposure control 2. Adjustment of the mA and/or kV according to patient size 3. Use of iterative reconstruction technique Electronically signed by: Jaxson Bennett MD (05/05/2019 7:59 AM) [id number]
--- NOTE | 2019-05-05 09:28 | PDOC ---
BRIEF OPERATIVE NOTE Date: May 05, 2019 Pre-Op Diagnosis pseudoarthrosis/hardware failure Post-Op Diagnosis same, cutaneous abscess Procedure Performed procedure aborted due to cutaneous purulance that emerged over incision site when prior incision was manipulated for preoperative prep Surgeon Camille Anesthesia Type: General Blood Loss zero HALLE ALCOCER MD May 05, 2019 09:28
--- NOTE | 2019-05-13 08:15 | OP ---
DATE OF SURGERY: 05/05/2019 DIAGNOSES: Pseudoarthrosis, hardware failure, lumbar radiculopathy. SURGEON: Young Alcocer MD PROCEDURE: The planned procedure was revision of fusion lumbar 5, sacral 1 with possible fusion extension. DESCRIPTION OF PROCEDURE: The patient was brought to the operating room and placed under general anesthesia in supine positioning. Some scar tissue was present at her prior incision which appeared unremarkable. However, upon manipulation for surgical planning and cleaning, some purulent material emerged from this region. This was swabbed and sent for culture. The purulent material appeared superficial but was right over the planned incision for an instrumented procedure. Based on this, the procedure was aborted. No incision was made and the patient was extubated in the operating room and taken to recovery in stable condition. She was discharged to home in stable condition with a prescription for antibiotic and close followup in clinic for the planned procedure to be rescheduled once this finding was appropriately treated. YOUNG ALCOCER MD DR: PEGGY/bina JOB#: [id number] / [id number]
[2019-05-20 11:37] VITALS: BP 104/67
== END | disposition home or self-care (01) ==
LOC: OPSVCIP 06:00 → UNDOADMIN 06:00 → SURG 06:00 → EDSTATUS 08:30
PROVIDERS: ATTEND Neurological Surgery
DX: T85.898A Other specified complication of other internal prosthetic devices, implants and grafts, initial encounter (principal); Y83.8 Other surgical procedures as the cause of abnormal reaction of the patient, or of later complication, without mention of misadventure at the time of the procedure; Z53.9 Procedure and treatment not carried out, unspecified reason
CPT/HCPCS: 22633; 36415; 72131; 84132; 86850; 86900; 86901; 87071; 87075; 87102; 87116; J0171; J0696; J1100; J2250; J2405; J2704; J3010; J3490; J7120; J7030